=== PATIENT | male | born 1990 | race Caucasian/White ===

== ENCOUNTER 2016-10-24 17:50 | Emergency (ER) | payer BC ==
[~2016-10-24] VITALS: Ht 182.9 cm; Wt 97.7 kg
[~2016-10-24 17:50] MED LIST: ADVAIR IH; ALLEGRA-D 12 HO1 TER PO; NO HOME MEDICATIONS; PROAIR HFA0.09 MG/AC IH; SINGULAIR
[2016-10-24 17:54] VITALS: BP 171/91; PULSE 80; TEMP 97.8
== END 2016-10-24 18:53 | disposition home or self-care (01) ==
LOC: COL.ER 17:50
DX: S63.601A Unspecified sprain of right thumb, initial encounter (principal); W22.09XA Striking against other stationary object, initial encounter

== ENCOUNTER 2017-12-26 12:14 | Emergency (ER) | payer BC ==
[~2017-12-26] VITALS: Ht 182.9 cm; Wt 97.7 kg
[2017-12-26 12:21] VITALS: TEMP 98.6
[2017-12-26] MEDS ORDERED: SINGULAIR 110 MG/TAB PO (12:36)
[2017-12-26] MEDS ORDERED: PROAIR HFA0.09 MG/AC IH (12:37)
[2017-12-26] MEDS ORDERED: WELLBUTRIN XL150 MG PO (12:38)
[2017-12-26 14:22] VITALS: BP 135/87
[2017-12-26] MEDS ORDERED: PREDNISONE20 MG PO (15:34)
[2017-12-26 15:51] VITALS: PULSE 110
== END 2017-12-26 15:54 | disposition home or self-care (01) ==
LOC: COL.ER 12:14
DX: J45.901 Unspecified asthma with (acute) exacerbation (principal)
CPT/HCPCS: J7512

== ENCOUNTER 2020-01-13 18:14 | Emergency (ER) | payer SELFPAY ==
[~2020-01-13] VITALS: Ht 182.9 cm; Wt 102.3 kg
[~2020-01-13 18:14] MED LIST changes: +PREDNISONE20 MG PO; +SINGULAIR 110 MG/TAB PO; +WELLBUTRIN XL150 MG PO
[2020-01-13 18:48] VITALS: BP 163/94; PULSE 105; TEMP 99.5
== END 2020-01-13 21:15 | disposition home or self-care (01) ==
LOC: COL.ER 18:14
DX: S96.911A Strain of unspecified muscle and tendon at ankle and foot level, right foot, initial encounter (principal); Z79.52 Long term (current) use of systemic steroids; X50.9XXA Other and unspecified overexertion or strenuous movements or postures, initial encounter
CPT/HCPCS: Q4045

== ENCOUNTER → 2020-06-24 | Outpatient (CLI) | payer SELFPAY ==
[~2020-06-24] VITALS: Ht 182.9 cm; Wt 100.9 kg
[2020-06-24] VITALS (16 sets, daily range): BP systolic 123–170; BP diastolic 81–101; PULSE 84–104
[~2020-06-24] MED LIST changes: +PREDNISONE20 MG; +PULMICORT90 MCG/Act IH
--- NOTE | 2020-06-24 08:30 | NUR ---
FENTANYL 50 MCG SIVP
--- NOTE | 2020-06-24 09:24 | NUR ---
TAKEN TO CT AND PLACED ON TABLE. MONITORING EQUIPMENT PLACED.
--- NOTE | 2020-06-24 09:45 | NUR ---
FENTANYAL 25 MCG GIVEN SIVP
== END ==
LOC: COL.RAD 07:00
DX: R19.07 Generalized intra-abdominal and pelvic swelling, mass and lump (principal)

== ENCOUNTER 2020-10-03 05:21 | Day surgery (SDC) | payer SELFPAY ==
[~2020-10-03] VITALS: Ht 182.9 cm; Wt 99.6 kg
[~2020-10-03 05:21] MED LIST changes: -PREDNISONE20 MG
[2020-10-03 06:00] VITALS: BP 133/75; PULSE 76; TEMP 98.1
[2020-10-03] MEDS ORDERED: NORCO 325 MG-51 TAB PO (08:48)
[2020-10-03 09:23] VITALS: BP 118/80; PULSE 61; TEMP 97.8
--- NOTE | 2020-10-03 09:23 | NUR ---
The patient arrived back to [facility] from the recovery room at this time. The patient appears alert and orietned and reports minimal pain in his abdomen at this time. The patient agrees to try some apple juice and applesauce at this time. Post operative vital signs were started at this time. The patient has four bandaids to his abdomen that appear clean, dry and intact. Call light is within reach. Will continue to monitor the patient.
[2020-10-03 09:38] VITALS: BP 119/78; PULSE 82
--- NOTE | 2020-10-03 09:38 | NUR ---
The patient appears to be tolerating the food and drink well. Vital signs appear stable. Will continue to monitor the patient.
--- NOTE | 2020-10-03 09:45 | NUR ---
The patient reports increased pain in his abdomen and was given a PRN dose of [place] 1 tab at this time. The patient's vital signs appear to be stable. Call light is within reach. Will continue to monitor the patient.
[2020-10-03 09:53] VITALS: BP 125/82; PULSE 83
[2020-10-03 10:08] VITALS: BP 113/69; PULSE 77
--- NOTE | 2020-10-03 10:08 | NUR ---
The patient denies wanting anything further to eat or drink at this time. Call light remains within reach. The patient has been in touch with his ride to notify them that he is done with surgery.
--- NOTE | 2020-10-03 10:30 | NUR ---
The patient ambulated to the bathroom with the stand by assistance of one nurse and appeared to tolreate the activity well. The patient voided without difficulty and voices a desire to be discharged home. The nurse instructed the patient to get dressed and notify the staff he is ready to review his discharge paperwork.
--- NOTE | 2020-10-03 10:45 | NUR ---
Discharge instructions were reviewed with the patient at this time. He verbalized understanding and has no questions for the nurse at this time. The patient's IV to his left hand was removed and a pressure dressing was applied to the site. The patient is dressed and ready to be escorted out.
--- NOTE | 2020-10-03 10:53 | NUR ---
The patient was escorted out via wheelchair to a private vehicle by QUETA Aguayo. The patient's belongings and discharge paperwork were sent with him. The patient's friend is present to drive him home.
== END 2020-10-03 10:53 | disposition home or self-care (01) ==
LOC: SDCO 05:21
DX: K65.4 Sclerosing mesenteritis (principal); J45.40 Moderate persistent asthma, uncomplicated; J30.9 Allergic rhinitis, unspecified; Z20.822 Contact with and (suspected) exposure to COVID-19; Z79.899 Other long term (current) drug therapy; Z79.52 Long term (current) use of systemic steroids; Z79.51 Long term (current) use of inhaled steroids
CPT/HCPCS: J0690; J1100; J1885; J2405; J2704; J3010; J7120

== ENCOUNTER 2023-03-16 21:46 | Emergency (ER) | payer BC ==
[~2023-03-16] VITALS: Ht 182.9 cm; Wt 90.9 kg
[~2023-03-16 21:46] MED LIST changes: +NORCO 325 MG-51 TAB PO
[2023-03-16 21:58] VITALS: TEMP 98.4
[2023-03-16 22:30] LABS: BASO # 0.1 K/mm3 (0.0-0.2); EOS # 1.1 K/mm3 (0.0-0.7); EOS % 10.4 % (0.0-4.0); GRAN % 66.7 % (42.2-75.2); HEMATOCRIT 49.5 % (42.0-52.0); HEMOGLOBIN 16.8 g/dl (13.5-18.0); LYMPH # 1.3 K/mm3 (1.2-3.4); LYMPH % 11.9 % (20.0-51.0); MEAN CELL VOLUME 89 fl (80.0-100.0); MEAN CORPUSCULAR HEMOGLOBIN 30 pg (27-31); MEAN CORPUSCULAR HGB CONC 34 g/dl (33.0-37.0); MEAN PLATELET VOLUME 9.9 fl (7.4-10.4); MONO % 9.7 % (1.7-9.3); PLATELET COUNT 295 K/mm3 (130-400); RED BLOOD COUNT 5.56 M/mm3 (4.20-5.60); REDCELL DISTRIBUTION WIDTH-CV 12.2 % (11.5-14.5)
[2023-03-16 22:47] LABS: ALBUMIN 4.5 gm/dL (3.5-5.0); BILIRUBIN,TOTAL 0.4 mg/dL (0.2-1.2); CALCIUM 9.7 mg/dL (8.4-10.2); CREATININE, serum 0.96 mg/dL (0.72-1.25); POTASSIUM 4.3 mmol/L (3.5-4.5); TOTAL PROTEIN 7.9 gm/dL (6.2-8.1)
[2023-03-17] MEDS ORDERED: VENTOLIN0.09 MG IH (00:18)
[2023-03-17] MEDS ORDERED: PREDNISONE20 MG PO (00:18)
[2023-03-17 00:22] VITALS: BP 127/99; PULSE 130
== END 2023-03-17 00:30 | disposition home or self-care (01) ==
LOC: COL.ER 21:46
PROVIDERS: Emergency Medicine
DX: J45.901 Unspecified asthma with (acute) exacerbation (principal); R00.0 Tachycardia, unspecified
CPT/HCPCS: J2930; J7040

== ENCOUNTER 2023-05-07 19:57 | Emergency (ER) | payer BC ==
[~2023-05-07] VITALS: Ht 182.9 cm; Wt 90.9 kg
[~2023-05-07 19:57] MED LIST changes: +VENTOLIN0.09 MG IH
[2023-05-07 20:01] VITALS: TEMP 98
[2023-05-07 21:15] VITALS: BP 120/89; PULSE 91
[2023-05-07] MEDS ORDERED: PREDNISONE20 MG PO ×3 (21:22→22:01)
== END 2023-05-07 21:59 | disposition home or self-care (01) ==
LOC: COL.ER 19:57
DX: J45.901 Unspecified asthma with (acute) exacerbation (principal)
CPT/HCPCS: J2930; J3475